=== PATIENT | male | born 1995 | race Caucasian/White ===

== ENCOUNTER 2017-09-21 19:09 | Emergency (ER) | payer BC ==
[2017-09-21 21:14] VITALS: BP 126/71
--- NOTE | 2017-09-21 21:33 | UC ---
Skin Complaint HPI - HPI Summary HPI Summary: 22 year old male with rectal complaint. RECTAL COMPLAINT , RASH, AROUND RECTUM . FOR ABOUT TWO DAYS , PAIN AND BURNING. WAS SEEN AT ANOTHER URGENT CARE TWO WEEKS AGO FOR RECTAL PAIN TWICE AND TOLD HE HAD HEMMOROIDS ALTHOUGH HE STATES THE PROVIDER DID NOT LOOK AT HIS ANUS. FOLLOWED UP WITH PCP AND WAS TOLD NOT HEMORRHOIDS BUT POSSIBLE A CRACK OR FISSURE OF HIS ANUS. HAS BEEN USING HYDROCORTISONE CREAM AND PREPARATION H. He has increased water intake, now with small rash near the rectum and also with bilateral lymph node enlargement. he did had URI Sx 4-5 days ago which is resolved. no fever or chills [ End ] - History of Current Complaint Chief Complaint: UCSkin Time Seen by Provider: 09/21/17 21:10 Stated Complaint: PERSONAL,URINARY Hx Obtained From: Patient Onset/Duration: Gradual Onset Timing: Constant - Allergy/Home Medications Allergies/Adverse Reactions: Allergies Allergy/AdvReac Type Severity Reaction Status Date / Time No Known Allergies Allergy Verified 09/21/17 21:03 Home Medications: Home Medications Ibuprofen TAB* [Advil TAB*] 400 mg PO Q6H PRN 09/21/17 [History Confirmed ] Review of Systems Skin: Rash Genitourinary: Other - anal fissure Is Patient Immunocompromised?: No All Other Systems Reviewed And Are Negative: Yes PMH/Surg Hx/FS Hx/Imm Hx Previously Healthy: Yes - Surgical History Surgical History: Yes Surgery Procedure, Year, and Place: NASAL SURGERY TO REMOVE A CYST A BABY - Family History Known Family History: Positive: None - Social History Occupation: Employed Full-time Alcohol Use: Rare Substance Use Type: None Smoking Status (MU): Never Smoked Tobacco Physical Exam Triage Information Reviewed: Yes Appearance: Well-Appearing, No Pain Distress, Well-Nourished Vital Signs: Initial Vital Signs Temp 98.3 F 09/21/17 21:04 Pulse 70 09/21/17 21:04 Resp 16 09/21/17 21:04 BP 126/71 09/21/17 21:04 Pulse Ox 100 09/21/17 21:04 Vital Signs Reviewed: Yes Eye Exam: Normal ENT Exam: Normal Dental Exam: Normal Neck exam: Normal Neck: Positive: 1 Respiratory Exam: Normal Cardiovascular Exam: Normal Abdominal Exam: Normal Abdomen Description: Positive: Other: - bilateral left > right inguinal lymphadnopathy present mild. mild tenderness. no hernia present. Musculoskeletal Exam: Normal Neurological Exam: Normal Psychological Exam: Normal Skin Exam: Normal Skin: Positive: Other - anus : normal , no lesions, there is some excoriation / red left lateral gluteal fold, Course/Dx - Course Course Of Treatment: had recent viral infection could contribute, treat with doxy and if sx persist then he is aware he needs labs and imaging. no new sexual partners. no STD concern per patient. [place] and will f/u with PCP. Advised no straining, cont with hydration - Diagnoses Provider Diagnoses: Lymphadenitis inguinal Discharge - Discharge Plan Condition: Good Disposition: HOME Prescriptions: DOXYcycline CAP(*) [DOXYcycline 100MG CAP(*)] 100 mg PO BID #20 cap Patient Education Materials: Adenitis (ED) Referrals: No Primary Care Phys,NOPCP [Primary Care Provider] - 1 Week Additional Instructions: As we discussed if your lymph nodes are not resolved and back to normal in 10 days then go back to your PCP for further evaluation
== END 2017-09-21 21:47 | disposition home or self-care (01) ==
LOC: UCCORT 19:09
DX: I88.9 Nonspecific lymphadenitis, unspecified (principal)
CPT/HCPCS: 99202; G0463

== ENCOUNTER 2019-02-13 12:15 | Emergency (ER) | payer BC ==
[2019-02-13 13:38] VITALS: BP 118/72
--- NOTE | 2019-02-13 14:59 | UC ---
Nausea/Vomiting/Diarrhea HPI - HPI Summary HPI Summary: 23-year-old male comes in with a chief complaint of nausea vomiting diarrhea and abdominal pain. Been going on for 5 days. 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 His first episode was in late 2018. He was treated with 3 days of medication improved for about 10 days and then the symptoms came back and then he was treated with nitazoxanide 500mg po bid x 3 days and has been asymptomatic until 5 days ago. He has seen a shop router at [place] for this treatment. She was unable to get in to see the shop router today and so he has come here. He gets mid abdominal pain it's a crampy and then he either vomits or has diarrhea and then the pain goes away. There is no focal abdominal pain that staying in one place. No prior abdominal surgeries. The diarrhea is loose he does not see any blood in it. Does not see any blood in the vomit either. - History of Current Complaint Chief Complaint: UCGI Stated Complaint: DIARRHEA,VOMITTING,ABD CRAMPS Time Seen by Provider: 02/13/19 13:51 Pain Intensity: 5 - Allergies/Home Medications Allergies/Adverse Reactions: Allergies Allergy/AdvReac Type Severity Reaction Status Date / Time No Known Allergies Allergy Verified 02/13/19 13:39 Home Medications: Home Medications Bifidobacterium Infantis [Align] 1 tab PO DAILY 02/13/19 [History Confirmed 01/27] PMH/Surg Hx/FS Hx/Imm Hx Previously Healthy: Yes - GIARDIASIS - Surgical History Surgical History: Yes Surgery Procedure, Year, and Place: NASAL SURGERY TO REMOVE A CYST A BABY - Family History Known Family History: Positive: None - Social History Alcohol Use: Rare Substance Use Type: None Smoking Status (MU): Never Smoked Tobacco Review of Systems All Other Systems Reviewed And Are Negative: Yes Constitutional: Positive: Other - SEE HPI Skin: Positive: Negative Eyes: Positive: Negative ENT: Positive: Negative Respiratory: Positive: Negative Cardiovascular: Positive: Negative Gastrointestinal: Positive: Abdominal Pain, Vomiting, Diarrhea, Nausea Genitourinary: Positive: Negative Motor: Positive: Negative Neurovascular: Positive: Negative Musculoskeletal: Positive: Negative Neurological: Positive: Negative Psychological: Positive: Negative Is Patient Immunocompromised?: No Physical Exam Triage Information Reviewed: Yes Appearance: No Pain Distress, Well-Nourished, Ill-Appearing - MILD Vital Signs: Initial Vital Signs Temp 98.4 F 02/13/19 13:31 Pulse 78 02/13/19 13:31 Resp 18 02/13/19 13:31 BP 118/72 02/13/19 13:31 Pulse Ox 98 02/13/19 13:31 Vital Signs Reviewed: Yes Eye Exam: Normal Eyes: Positive: Conjunctiva Clear Neck: Positive: Supple Respiratory: Positive: Lungs clear, Normal breath sounds, No respiratory distress Cardiovascular: Positive: RRR Abdomen Description: Positive: Soft, Other: - MILD MID ABDOMINAL TENDERNESS TO PALPATION, NO RLQ TENDERNESS,NO REBOUND.. Negative: Distended, Guarding Bowel Sounds: Positive: Present Musculoskeletal Exam: Normal Musculoskeletal: Positive: Strength Intact, ROM Intact Neurological Exam: Normal Neurological: Positive: Alert, Muscle Tone Normal Psychological Exam: Normal Psychological: Positive: Age Appropriate Behavior Skin Exam: Normal Naus/Vom/Diarrhea Course/Dx - Course Course Of Treatment: Patient went home with a stool kit. Symptoms sound similar to his prior Giardia infection. Overall the plan is to get a stool kit going and have the patient follow up with his shop router. We discussed getting a prescription for the nitazoxanide. After the stool sample was obtained patient may start the medication. Also discussed if things got worse he would go to the emergency department for further evaluation and care. - Differential Dx/Diagnosis Provider Diagnosis: Nausea vomiting and diarrhea, Abdominal pain, History of giardiasis Condition At Discharge: Stable Discharge - Sign-Out/Discharge Documenting (check all that apply): Patient Departure All imaging exams completed and their final reports reviewed: No Studies - Discharge Plan Condition: Stable Disposition: HOME Prescriptions: Nitazoxanide [Alinia] 500 mg PO BID #6 tablet Ondansetron ODT TAB* [Zofran 4 MG Odt TAB*] 4 mg PO Q6H PRN #15 tab.odt PRN Reason: Nausea Patient Education Materials: Acute Nausea and Vomiting (ED), Acute Diarrhea (ED ), Abdominal Pain (ED) Referrals: Alecia Booth NP [Nurse Practitioner] - Additional Instructions: FOLLOW UP WITH YOUR MANAGER IMPLEMENTATION, ALECIA ESPINAL NP. GO TO THE EMERGENCY DEPARTMENT IF YOUR CONDITION WORSENS; PAIN, FEVER, BLOOD IN YOUR VOMIT OR STOOL, DEHYDRATION OR ANY QUESTIONS OR CONCERNS. - Billing Disposition and Condition Condition: STABLE Disposition: Home
== END 2019-02-13 15:07 | disposition home or self-care (01) ==
LOC: SUPCPDRO 12:15 → UCCORT 12:15
DX: R11.2 Nausea with vomiting, unspecified (principal); R19.7 Diarrhea, unspecified; R10.9 Unspecified abdominal pain; A07.1 Giardiasis [lambliasis]
CPT/HCPCS: 99212; G0463